=== PATIENT | female | born 1950 | race Caucasian/White ===

== ENCOUNTER → 2016-12-17 | Outpatient (CLI) | payer OTHER ==
--- NOTE | 2016-12-17 12:26 | RADRPT ---
PROCEDURE: US Lower extremity Venous. CLINICAL INDICATION: Left leg edema TECHNIQUE: Multiple sonographic images of the left lower extremity deep venous system was obtained utilizing grayscale, color-flow, compressive sonography and doppler imaging with augmentation. The images were reviewed on a PACS workstation. COMPARISON: None. FINDINGS: There is normal compressibility and flow within the left common femoral, femoral, posterior tibial, peroneal and popliteal veins. The saphenous vein is patent from the knee to the ankle. RPTAT: AA IMPRESSION: No sonographic evidence for deep venous thrombosis. .Sacha Doll MD, MD Date Time Electronically viewed and signed by .Sacha Doll MD, on 12/17/2016 12:26 .S/
== END | disposition home or self-care (01) ==
LOC: RAD 11:35
PROVIDERS: ATTEND Physical Medicine & Rehabilitation Sports Medicine
DX: M79.662 Pain in left lower leg (principal); R60.0 Localized edema
CPT/HCPCS: 93971